=== PATIENT | male | born 1990 | race Hispanic/Latino ===

== ENCOUNTER 2019-12-03 18:46 | Emergency (ER) | payer OTHER ==
[2019-12-03 19:42] LABS: Basophils # (Auto) 0.1 K/mm3 (0.0-0.1); Basophils % (Auto) 1.2 % (0.0-1.8); Eosinophils # (Auto) 0.3 K/mm3 (0.0-0.4); Eosinophils % (Auto) 3.9 % (0.0-4.3); Lymphocytes # (Auto) 2.2 K/mm3 (1.2-5.4); Lymphocytes % (Auto) 28.9 % (13.4-35.0); Mean Corpuscular HGB Conc 34 % (32-34); Mean Corpuscular Volume 92 fl (84-94); Monocytes # (Auto) 0.9 K/mm3 (0.0-0.8); Monocytes % (Auto) 11.4 % (0.0-7.3); Platelet Count 199 K/mm3 (140-440); Red Cell Distribution Width 13.1 % (13.2-15.2)
[2019-12-03 20:03] LABS: BUN/Creatinine Ratio 8; Blood Urea Nitrogen 9 mg/dL (9-20); Calcium 9.5 mg/dL (8.4-10.2); Hemolysis Index 9
[2019-12-03] MEDS ORDERED: diphenhydrAMINE 50 MG/ML VIAL ONE (23:25)
[2019-12-03] MEDS ORDERED: LORazepam 2 MG/ML VIAL ONE (23:25)
[2019-12-03] MEDS ORDERED: ZIPRASIDONE MESYLATE 20 MG VIAL IM ONE ×2 (23:26→23:44)
--- NOTE | 2019-12-03 23:32 | Emergency Department Report ---
<SHARA AGGE III - Last Filed: 12/03/19 23:43> ED Psych HPI - General Chief Complaint: Psych Stated Complaint: SUICIDAL Time Seen by Provider: 12/03/19 23:09 Source: patient Mode of arrival: Ambulatory - History of Present Illness Initial Comments: Patient is a 28-year-old male that presents emergency room with complaints of suicidal ideations. Patient states he has a plan. Patient states he wants to jump in traffic or jump off a bridge. Patient states that his suicidal thoughts have been going on for 3 months but there becoming more frequent. Patient states his symptoms are worsening. Patient states that he therefore was able to control his urges to want to but now he cannot. Patient hallucinations. Patient denies homicidal ideations. Patient complains of depression anxiety. Patient states cannot sit still because he is so nervous. Patient states he has a history of polio, depression and ADHD and he is compliant with medications. Patient denies recent travel. Patient denies recent international travel. Patient denies exposure to the novel coronavirus. Patient denies sick contacts. Patient denies fever and chills. Patient denies cough. Patient denies diarrhea. Patient denies coming in contact with anybody with symptoms of the novel coronavirus. MD Complaint: suicidal ideation, feels depressed -: Sudden Associated Psychiatric Symptoms: depression, suicidal ideation, racing thoughts History of same: Yes Quality: constant Improves With: none Worsens With: none Context: significant life stressor Associated Symptoms: denies: confusion, headache, shortness of breath, nausea, vomiting, syncope, insomnia If Self Harm: admits thoughts of, has plan - Related Data Home Medications Medication Instructions Recorded Confirmed Last Taken [place] Carbonate [Eskalith] 300 mg PO BID 12/04/19 12/04/19 Unknown Mirtazapine [Remeron 15mg TAB] 15 mg PO QDAY 12/04/19 12/04/19 Unknown risperiDONE [RisperDAL] 2 mg PO BID 12/04/19 12/04/19 Unknown Allergies Allergy/AdvReac Type Severity Reaction Status Date / Time No Known Allergies Allergy Verified 11/01/19 23:34 ED Review of Systems Constitutional: denies: chills, fever Eyes: denies: eye pain, eye discharge, vision change ENT: denies: ear pain, throat pain Respiratory: denies: cough, shortness of breath, wheezing Cardiovascular: denies: chest pain, palpitations Endocrine: no symptoms reported Gastrointestinal: denies: abdominal pain, nausea, diarrhea Genitourinary: denies: urgency, dysuria Musculoskeletal: denies: back pain, joint swelling, arthralgia Skin: denies: rash, lesions Neurological: denies: headache, weakness, paresthesias Psychiatric: anxiety, depression, suicidal thoughts. denies: auditory [place] llucinations, visual hallucinations, homicidal thoughts Hematological/Lymphatic: denies: easy bleeding, easy bruising ED Past Medical Hx - Past Medical History Previous Medical History?: Yes Hx Psychiatric Treatment: Yes (depression, bipolar ADHD) - Surgical History Past Surgical History?: No - Social History Smoking Status: Current Every Day Smoker Substance Use Type: Alcohol - Medications Home Medications: Home Medications Medication Instructions Recorded Confirmed Last Taken Type [place] Carbonate [Eskalith] 300 mg PO BID 12/04/19 12/04/19 Unknown History Mirtazapine [Remeron 15mg TAB] 15 mg PO QDAY 12/04/19 12/04/19 Unknown History risperiDONE [RisperDAL] 2 mg PO BID 12/04/19 12/04/19 Unknown History ED Physical Exam - General Limitations: No Limitations General appearance: alert, in no apparent distress - Head Head exam: Present: atraumatic, normocephalic - Eye Eye exam: Present: normal appearance - ENT ENT exam: Present: mucous membranes moist - Neck Neck exam: Present: normal inspection - Respiratory Respiratory exam: Present: normal lung sounds bilaterally. Absent: respiratory distress - Cardiovascular Cardiovascular Exam: Present: regular rate, normal rhythm. Absent: systolic murmur, diastolic murmur, rubs, gallop - GI/Abdominal GI/Abdominal exam: Present: soft, normal bowel sounds - Rectal Rectal exam: Present: deferred - Extremities Exam Extremities exam: Present: normal inspection - Back Exam Back exam: Present: normal inspection - Neurological Exam Neurological exam: Present: alert, oriented X3 - Psychiatric Psychiatric exam: Present: agitated, anxious, suicidal ideation - Skin Skin exam: Present: warm, dry, intact, normal color. Absent: rash ED Course - Reevaluation(s) Reevaluation #1: Initial evaluation done. Patient placed on a ER hold. Patient is pacing around the room and is very anxious. Patient will be given Geodon and Ativan and Benadryl. Patient agrees with plan of care. Patient requested to be placed on a 1013. 12/03/19 23:15 Reevaluation #2: I discussed all results and clinical findings with patient. I discussed plan of care with patient. Patient agrees with plan of care. Patient is medically cleared. Patient will remain in the ER as an ER hold and patient's final disposition will come from our psychiatry team. He states he really needs him to calm down. Patient states he cannot stop his racing thoughts of suicide. Patient will be given medications. The nurse is preparing the meds. 12/03/19 23:32 ED Medical Decision Making - Lab Data Result diagrams: 12/03/19 19:16 12/03/19 19:16 - Medical Decision Making Patient is a 28-year-old male that presents emergency room with complaints of suicidal ideation with plan. Patient states he wants to jump off a bridge or jumping travel. Patient states he wants to . Patient agitated and anxious while being examined. Patient given Geodon, Ativan and Benadryl. Patient had labs done which shows acute intoxication. The rest of patient's labs are unremarkable. Patient medically cleared. Patient will remain in the ER as an ER hold. Patient's final disposition will come from our psychiatry team. - Differential Diagnosis Suicidal ideation, depression, anxiety, agitation. ED Disposition Clinical Impression: Suicidal ideation Disposition: [id number]/TX-[id number] PSY HOSP/PSY UNIT Is pt being admited?: No Does the pt Need Aspirin: No Condition: Stable <DIMITRI BABCOCK - Last Filed: 12/04/19 12:43> ED Review of Systems ROS: Stated complaint: SUICIDAL Other details as noted in HPI ED Course Vital Signs 12/03/19 12/04/19 12/04/19 18:53 01:00 01:51 Temperature 98.2 F 98 F Pulse Rate 127 H 88 Respiratory 16 18 18 Rate Blood Pressure 160/80 134/86 [Right] O2 Sat by Pulse 96 100 100 Oximetry 12/04/19 09:46 Temperature 98.4 F Pulse Rate 94 H Respiratory 20 Rate Blood Pressure 131/71 [Right] O2 Sat by Pulse 99 Oximetry ED Medical Decision Making - Lab Data Result diagrams: 12/03/19 19:16 12/03/19 19:16 - Medical Decision Making Patient was seen last night by 1 of my colleagues and expressed suicidal ideations with a plan to jump off a bridge. He was seen by the psychiatric train brake operator and the same suicidal ideations were expressed to her. Finally, the patient continues to express these same suicidal ideations to me. A 1013 has been filled out. Labs have been mostly unremarkable except for amphetamines positive on urine drug screen and the patient had a blood alcohol level of 0.16 at 7 PM last night that will certainly be negative at this time. Vital signs are reassuring. The patient is medically cleared for psychiatric placement. Critical Care Time: No Critical care attestation.: If time is entered above; I have spent that time in minutes in the direct care of this critically ill patient, excluding procedure time. ED Disposition Is pt being admited?: No Time of Disposition: 12:43
[2019-12-03] MEDS ORDERED: diphenhydrAMINE 50 MG/ML VIAL IM ONE (23:44)
[2019-12-03] MEDS ORDERED: LORazepam 2 MG/ML VIAL IM ONE (23:44)
[2019-12-04 00:32] LABS: Bilirubin,Urine NEG (Negative); Blood,Urine NEG (Negative); Color,Urine Straw (Yellow); Protein,Urine <15 mg/dL mg/dL (Negative); Urobilinogen,Urine < 2.0 mg/dL (<2.0)
[2019-12-04 00:40] LABS: Amphetamine Screen,Urine PRESUMPTIVE POSITIVE; Benzodiazepines Screen,Urine PRESUMPTIVE NEGATIVE; Cannabinoid Screen,Urine PRESUMPTIVE NEGATIVE; Cocaine Screen,Urine PRESUMPTIVE NEGATIVE; Methadone Screen,Urine PRESUMPTIVE NEGATIVE; Opiate Screen,Urine PRESUMPTIVE NEGATIVE
[2019-12-04 09:47] VITALS: BP 131/71
== END 2019-12-04 18:22 ==
LOC: ED 18:46 → EEVIPCON 18:46 → ED 12-04 18:22
DX: R45.851 Suicidal ideations (principal); F32.9 Major depressive disorder, single episode, unspecified; F17.200 Nicotine dependence, unspecified, uncomplicated; Z79.899 Other long term (current) drug therapy
CPT/HCPCS: 36415; 80048; 80307; 81001; 85025; 96372; 99285; J1200; J2060; J3486; 80320; G0480

== ENCOUNTER 2021-01-21 16:46 | Emergency (ER) | payer OTHER ==
--- NOTE | 2021-01-21 17:53 | Emergency Department Report ---
ED Psych HPI - General Chief Complaint: Psych Stated Complaint: HOMICIDAL THOUGHTS Time Seen by Provider: 01/21/21 17:36 Source: patient Mode of arrival: Ambulatory - History of Present Illness Initial Comments: Patient presents with homicidal ideation. He is requesting a psychiatric evaluation. He states that he feels like he wants to kill somebody. He does not have anyone in particular in mind. He has talked about and thought about stuffing a gasoline filled rag in their mouth and then proceeding from there. He has not acted on this. He is not suicidal. He is not hearing voices that are telling him to harm himself. Patient is on Abilify and Zyprexa. He states that that has not controlled his symptoms at all. He is willing to speak to a counselor. He is willing to try other medication. - Related Data Home Medications Medication Instructions Recorded Confirmed Last Taken [place] Carbonate [Eskalith] 300 mg PO BID 12/04/19 12/04/19 Unknown Mirtazapine [Remeron 15mg TAB] 15 mg PO QDAY 12/04/19 12/04/19 Unknown risperiDONE [RisperDAL] 2 mg PO BID 12/04/19 12/04/19 Unknown Allergies Allergy/AdvReac Type Severity Reaction Status Date / Time No Known Allergies Allergy Verified 01/21/21 17:03 ED Review of Systems ROS: Stated complaint: HOMICIDAL THOUGHTS Other details as noted in HPI Comment: All other systems reviewed and negative Constitutional: denies: fever Eyes: denies: eye pain ENT: denies: throat pain Respiratory: denies: cough Cardiovascular: denies: chest pain Endocrine: denies: unexplained weight loss Gastrointestinal: denies: abdominal pain Genitourinary: denies: dysuria Musculoskeletal: denies: back pain Skin: denies: rash Neurological: denies: headache Psychiatric: as per HPI Hematological/Lymphatic: denies: easy bruising ED Past Medical Hx - Past Medical History Hx Psychiatric Treatment: Yes (depression, bipolar ADHD) - Family History Family history: no significant - Social History Smoking Status: Current Every Day Smoker (We discussed smoking cessation x3 minutes.) Substance Use Type: Alcohol - Medications Home Medications: Home Medications Medication Instructions Recorded Confirmed Last Taken Type [place] Carbonate [Eskalith] 300 mg PO BID 12/04/19 12/04/19 Unknown History Mirtazapine [Remeron 15mg TAB] 15 mg PO QDAY 12/04/19 12/04/19 Unknown History risperiDONE [RisperDAL] 2 mg PO BID 12/04/19 12/04/19 Unknown History ED Physical Exam - General Limitations: No Limitations, Other General appearance: alert, in no apparent distress - Head Head exam: Present: atraumatic, normocephalic, normal inspection - Eye Eye exam: Present: normal appearance, EOMI. Absent: scleral icterus - ENT ENT exam: Present: normal exam, normal external ear exam - Neck Neck exam: Absent: tenderness, meningismus - Respiratory Respiratory exam: Present: normal lung sounds bilaterally. Absent: respiratory distress - Cardiovascular Cardiovascular Exam: Present: regular rate, normal rhythm - GI/Abdominal GI/Abdominal exam: Present: soft. Absent: distended - Extremities Exam Extremities exam: Present: normal capillary refill - Back Exam Back exam: Present: full ROM - Neurological Exam Neurological exam: Present: alert, oriented X3, normal gait. Absent: motor sensory deficit - Psychiatric Psychiatric exam: Present: homicidal ideation - Skin Skin exam: Present: warm, dry ED Course Vital Signs 01/21/21 01/21/21 17:02 17:32 Temperature 98.2 F 97.9 F Pulse Rate 105 H 93 H Respiratory 16 20 Rate Blood Pressure 126/72 138/76 [Left] O2 Sat by Pulse 100 96 Oximetry - Reevaluation(s) Reevaluation #1: 01/21/21 17:53 Patient was placed on a hold. Labs were ordered. Psychiatric evaluation has been requested. Old records reviewed. Reevaluation #2: 01/21/21 18:55 Labs are noted. Patient is medically cleared. Psychiatric evaluation is currently pending. Reevaluation #3: 01/21/21 19:13 Psychiatric evaluation has been completed. Patient meets criteria for admission. Coronavirus swab has been ordered. Patient will be observed and maintained here until psychiatric placement can be facilitated. ED Medical Decision Making - Lab Data Result diagrams: 01/21/21 17:45 01/21/21 17:45 - Medical Decision Making Patient presents with active homicidal ideation. He does not have any specific target in mind. He does not appear to be septic or toxic. There is no metabolic derangement. He does not have any evidence of intoxicants on board. He is clinically sober. Patient is medically cleared. We will await psychiatric disposition. Critical Care Time: No Critical care attestation.: If time is entered above; I have spent that time in minutes in the direct care of this critically ill patient, excluding procedure time. ED Disposition Clinical Impression: Homicidal ideation Disposition: 30 STILL A PATIENT Is pt being admited?: No Condition: Stable Referrals: PRIMARY CARE, [Primary Care Provider] - 3-5 Days
[2021-01-21 18:25] LABS: Amphetamine Screen,Urine Negative; Benzodiazepines Screen,Urine Negative; Cannabinoid Screen,Urine Negative; Cocaine Screen,Urine Negative; Methadone Screen,Urine Negative; Opiate Screen,Urine Negative
[2021-01-21 18:29] LABS: BUN/Creatinine Ratio 10; Blood Urea Nitrogen 12 mg/dL (9-20); Calcium 9.6 mg/dL (8.4-10.2); Hemolysis Index 12
[2021-01-21 18:51] LABS: Basophils # (Auto) 0.1 K/mm3 (0.0-0.1); Eosinophils # (Auto) 0.2 K/mm3 (0.0-0.4); Eosinophils % (Auto) 2.2 % (0.0-4.3); Hematocrit 44.9 % (35.5-45.6); Hemoglobin 15.5 gm/dl (11.8-15.2); Lymphocytes # (Auto) 2.7 K/mm3 (1.2-5.4); Lymphocytes % (Auto) 32.1 % (13.4-35.0); Mean Corpuscular HGB Conc 35 % (32-34); Mean Corpuscular Volume 93 fl (84-94); Monocytes # (Auto) 0.8 K/mm3 (0.0-0.8); Monocytes % (Auto) 9.6 % (0.0-7.3); Platelet Count 188 K/mm3 (140-440); Red Blood Count 4.85 M/mm3 (3.65-5.03); Red Cell Distribution Width 13.6 % (13.2-15.2)
[2021-01-21] MEDS ORDERED: POTASSIUM CHLORIDE ER 20 MEQ TAB PO ONE (19:14)
[2021-01-22 08:12] VITALS: BP 120/45
--- NOTE | 2021-01-22 10:51 | Consultation ---
History of Present Illness - Reason for Consult Consult date: 01/22/21 Reason for consult: Homicidal ideation - History of Present Psychiatric Illness Per Note: Patient presents with homicidal ideation. He is requesting a psychiatric evaluation. He states that he feels like he wants to kill somebody. He does not have anyone in particular in mind. He has talked about and thought about stuffing a gasoline filled rag in their mouth and then proceeding from there. He has not acted on this. He is not suicidal. He is not hearing voices that are telling him to harm himself. Patient is on Abilify and Zyprexa. He states that that has not controlled his symptoms at all. He is willing to speak to a counselor. He is willing to try other medication. Nehemiah Castañeda is a 30 year old male with history of Bipolar. In my interview with the patient is calm and cooperative. The patient reports that he was recently discharged from an Inpatient facility where he was admitted for homicidal ideation. The patient continues to endorse homicidal ideation without a plan stating " Just flashes of anger"; states ongoing homicidal ideation for months now and has been compliant with psychotropic medications. He reports recent stressor such a school. The patient denies any current suicidal ideation and denies hallucinations. PAST PSYCHIATRIC HISTORY Diagnoses: Bipolar Suicide attempts or Self-harm behavior: Yes Prior psychiatric hospitalizations: Multiple Substance Abuse history: Amphetamines Previous psychiatric medications tried: currently on Abilify and Zyprexa. Outpatient treatment: Denied SOCIAL HISTORY Marital Status: Single Living Arrangements: Lives with grand mother Employment Status: unemployed Access to guns/weapons: Denied Education: some college History of Abuse: Denied Legal History: None reported REVIEW OF SYSTEMS Constitutional: Negative for weight loss ENT: Negative for stridor Respiratory: Negative for cough or hemoptysis All other systems reviewed and are negative MENTAL STATUS EXAMINATION General Appearance and Behavior: Age appropriate, dressed appropriately, calm and uncooperative Cooperation: guarded Psychomotor Behavior: psychomotor normal Mood: "ok" Affect and affective range: restricted Thought Process: goal oriented Thought Content: None Speech: Normal volume, Regular rate and rhythm, Intellectual Functioning: Average Suicidal Ideation:Not suicidal Homicidal Ideation: denies Hallucinations: Denies Delusions: None elicited Impulse Control: Unimpaired Insight and Judgment: limited insight and judgment, Memory: Normal Attention: divided Orientation: Alert, oriented Assessment and Plan (1) Bipolar (2) Treatment plan Continue 1013 Continue previous prescribed meds Risks, benefits and alternatives of medications discussed with the patient, questions answered and consent obtained from patient. PSYCHOTHERAPY: Supportive psychotherapy provided MEDICAL: Per primary team DELIRIUM PRECAUTIONS: Please re-orient patient frequently, keep lights on during the day, and minimize benzodiazepines and opiates as these medications could worsen patient's confusion. QUALITY CONTROL LEAD: Per medical team DISPOSITION: Recommend acute inpatient psychiatric hospitalization. Will follow. Thank you for the consult. Please contact with any questions and/or concerns. Case staffed with Dr. Rashid Medications and Allergies Allergies Allergy/AdvReac Type Severity Reaction Status Date / Time No Known Allergies Allergy Verified 01/21/21 17:03 Home Medications Medication Instructions Recorded Confirmed Last Taken Type ARIPiprazole [Abilify] 20 mg PO QDAY 01/22/21 01/22/21 Unknown History OLANzapine [ZyPREXA] 2.5 mg PO QDAY 01/22/21 01/22/21 Unknown History Mental Status Exam - Vital signs Last Vital Signs Temp 98.3 F 01/22/21 08:11 Pulse 89 01/22/21 08:11 Resp 18 01/22/21 08:11 BP 120/45 01/22/21 08:11 Pulse Ox 97 01/22/21 08:11 Results Result Diagrams: 01/21/21 17:45 01/21/21 17:45 Abnormal lab results 01/21/21 01/21/21 01/21/21 Range/Units 17:45 17:45 17:45 Hgb 15.5 H (11.8-15.2) gm/dl MCHC 35 H (32-34) % [place] % (Auto) 9.6 H (0.0-7.3) % Potassium 3.5 L (3.6-5.0) mmol/L Carbon Dioxide 19 L (22-30) mmol/L Plasma/Serum Alcohol 0.11 H (0-0.07) % All other labs normal.
[2021-01-22] MEDS ORDERED: LORazepam 2 MG/ML VIAL IM PRN (11:09)
[2021-01-22] MEDS ORDERED: diphenhydrAMINE 25 MG CAP PO PRN (11:09)
--- NOTE | 2021-01-22 11:11 | Event Note ---
Date: 01/22/21 The patient was evaluated in the emergency department for symptoms described in the history of present illness. He/she was evaluated in the context of the global COVID-19 pandemic, which necessitated consideration that the patient might be at risk for infection with the virus that causes COVID-19. Institutional protocols and algorithms that pertain to the evaluation of patients at risk for COVID-19 are in a state of rapid change based on information released by regulatory bodies including the CDC and federal and state organizations. These policies and algorithms were followed during the patient's care in the emergency department. Please note that these policies, procedures and recommendations changed on a rapid basis. Patient seen and examined. He is cooperative with myself. He is in no acute distress. He denies acute medical complaints. At the psychiatry team who recommended 1013. His initial laboratory studies are reviewed and appreciated. Salicylate and acetaminophen level as well as lithium level have not been obtained. In addition, CO2 was 19 on his initial ER evaluation. We will recheck these laboratory studies. As needed orders initiated. Psychiatric recommendations reviewed and appreciated. Nursing team endorses no acute complaints at this time. Patient endorsed no urinary symptoms to myself or to care team. 01/22/2021; 14: 11 PM Laboratory studies unremarkable. This patient remains medically suitable for psychiatric consultation, placement and disposition. Psychiatric recommendations are reviewed and appreciated. Awaiting placement. Vital Signs 01/21/21 01/21/21 01/21/21 17:02 17:32 20:46 Temperature 98.2 F 97.9 F Pulse Rate 105 H 93 H Respiratory 16 20 Rate Blood Pressure 126/72 138/76 [Left] O2 Sat by Pulse 100 96 98 Oximetry 01/22/21 08:11 Temperature 98.3 F Pulse Rate 89 Respiratory 18 Rate Blood Pressure 120/45 [Left] O2 Sat by Pulse 97 Oximetry Lab Results 01/21/21 01/21/21 01/21/21 Range/Units 17:45 17:45 17:45 WBC 8.4 (4.5-11.0) K/mm3 RBC 4.85 (3.65-5.03) M/mm3 Hgb 15.5 H (11.8-15.2) gm/dl Hct 44.9 (35.5-45.6) % MCV 93 (84-94) fl MCH 32 (28-32) pg MCHC 35 H (32-34) % RDW 13.6 (13.2-15.2) % Plt Count 188 (140-440) K/mm3 Lymph % (Auto) 32.1 (13.4-35.0) % [place] % (Auto) 9.6 H (0.0-7.3) % Eos % (Auto) 2.2 (0.0-4.3) % Baso % (Auto) 1.0 (0.0-1.8) % Lymph # (Auto) 2.7 (1.2-5.4) K/mm3 [place] # (Auto) 0.8 (0.0-0.8) K/mm3 Eos # (Auto) 0.2 (0.0-0.4) K/mm3 Baso # (Auto) 0.1 (0.0-0.1) K/mm3 Seg Neutrophils % 55.1 (40.0-70.0) % Seg Neutrophils # 4.6 (1.8-7.7) K/mm3 Sodium 142 (137-145) mmol/L Potassium 3.5 L (3.6-5.0) mmol/L Chloride 104.8 (98-107) mmol/L Carbon Dioxide 19 L (22-30) mmol/L Anion Gap 22 mmol/L BUN 12 (9-20) mg/dL Creatinine 1.2 (0.8-1.3) mg/dL Estimated GFR > 60 ml/min BUN/Creatinine Ratio 10 % Glucose 91 (75-100) mg/dL Calcium 9.6 (8.4-10.2) mg/dL Urine Opiates Screen Urine Methadone Screen Ur Barbiturates Screen Ur Phencyclidine Scrn Ur Amphetamines Screen U Benzodiazepines Scrn Urine Cocaine Screen U Marijuana (THC) Screen Drugs of Abuse Note Plasma/Serum Alcohol 0.11 H (0-0.07) % 01/21/21 Range/Units 17:48 WBC (4.5-11.0) K/mm3 RBC (3.65-5.03) M/mm3 Hgb (11.8-15.2) gm/dl Hct (35.5-45.6) % MCV (84-94) fl MCH (28-32) pg MCHC (32-34) % RDW (13.2-15.2) % Plt Count (140-440) K/mm3 Lymph % (Auto) (13.4-35.0) % [place] % (Auto) (0.0-7.3) % Eos % (Auto) (0.0-4.3) % Baso % (Auto) (0.0-1.8) % Lymph # (Auto) (1.2-5.4) K/mm3 [place] # (Auto) (0.0-0.8) K/mm3 Eos # (Auto) (0.0-0.4) K/mm3 Baso # (Auto) (0.0-0.1) K/mm3 Seg Neutrophils % (40.0-70.0) % Seg Neutrophils # (1.8-7.7) K/mm3 Sodium (137-145) mmol/L Potassium (3.6-5.0) mmol/L Chloride (98-107) mmol/L Carbon Dioxide (22-30) mmol/L Anion Gap mmol/L BUN (9-20) mg/dL Creatinine (0.8-1.3) mg/dL Estimated GFR ml/min BUN/Creatinine Ratio % Glucose (75-100) mg/dL Calcium (8.4-10.2) mg/dL Urine Opiates Screen Negative Urine Methadone Screen Negative Ur Barbiturates Screen Negative Ur Phencyclidine Scrn Negative Ur Amphetamines Screen Negative U Benzodiazepines Scrn Negative Urine Cocaine Screen Negative U Marijuana (THC) Screen Negative Drugs of Abuse Note Disclamer Plasma/Serum Alcohol (0-0.07) % Lab Results 01/21/21 01/21/21 01/21/21 Range/Units 17:45 17:45 17:45 WBC 8.4 (4.5-11.0) K/mm3 RBC 4.85 (3.65-5.03) M/mm3 Hgb 15.5 H (11.8-15.2) gm/dl Hct 44.9 (35.5-45.6) % MCV 93 (84-94) fl MCH 32 (28-32) pg MCHC 35 H (32-34) % RDW 13.6 (13.2-15.2) % Plt Count 188 (140-440) K/mm3 Lymph % (Auto) 32.1 (13.4-35.0) % [place] % (Auto) 9.6 H (0.0-7.3) % Eos % (Auto) 2.2 (0.0-4.3) % Baso % (Auto) 1.0 (0.0-1.8) % Lymph # (Auto) 2.7 (1.2-5.4) K/mm3 [place] # (Auto) 0.8 (0.0-0.8) K/mm3 Eos # (Auto) 0.2 (0.0-0.4) K/mm3 Baso # (Auto) 0.1 (0.0-0.1) K/mm3 Seg Neutrophils % 55.1 (40.0-70.0) % Seg Neutrophils # 4.6 (1.8-7.7) K/mm3 Sodium 142 (137-145) mmol/L Potassium 3.5 L (3.6-5.0) mmol/L Chloride 104.8 (98-107) mmol/L Carbon Dioxide 19 L (22-30) mmol/L Anion Gap 22 mmol/L BUN 12 (9-20) mg/dL Creatinine 1.2 (0.8-1.3) mg/dL Estimated GFR > 60 ml/min BUN/Creatinine Ratio 10 % Glucose 91 (75-100) mg/dL Calcium 9.6 (8.4-10.2) mg/dL Total Creatine Kinase (55-170) units/L Urine Color (Yellow) Urine Turbidity (Clear) Urine pH (5.0-7.0) Ur Specific [place] (1.003-1.030) Urine Protein (Negative) mg/dL Urine Glucose (UA) (Negative) mg/dL Urine Ketones (Negative) mg/dL Urine Blood (Negative) Urine Nitrite (Negative) Urine Bilirubin (Negative) Urine Urobilinogen (<2.0) mg/dL Ur Leukocyte Esterase (Negative) Urine WBC (Auto) (0.0-6.0) /HPF Urine RBC (Auto) (0.0-6.0) /HPF Urine Mucus /HPF Salicylates (2.8-20.0) mg/dL Urine Opiates Screen Urine Methadone Screen Acetaminophen (10.0-30.0) ug/mL Ur Barbiturates Screen Ur Phencyclidine Scrn Ur Amphetamines Screen U Benzodiazepines Scrn [place] (0.0-1.2) mmol/L Urine Cocaine Screen U Marijuana (THC) Screen Drugs of Abuse Note Plasma/Serum Alcohol 0.11 H (0-0.07) % 01/21/21 01/22/21 01/22/21 Range/Units 17:48 11:23 11:23 WBC (4.5-11.0) K/mm3 RBC (3.65-5.03) M/mm3 Hgb (11.8-15.2) gm/dl Hct (35.5-45.6) % MCV (84-94) fl MCH (28-32) pg MCHC (32-34) % RDW (13.2-15.2) % Plt Count (140-440) K/mm3 Lymph % (Auto) (13.4-35.0) % [place] % (Auto) (0.0-7.3) % Eos % (Auto) (0.0-4.3) % Baso % (Auto) (0.0-1.8) % Lymph # (Auto) (1.2-5.4) K/mm3 [place] # (Auto) (0.0-0.8) K/mm3 Eos # (Auto) (0.0-0.4) K/mm3 Baso # (Auto) (0.0-0.1) K/mm3 Seg Neutrophils % (40.0-70.0) % Seg Neutrophils # (1.8-7.7) K/mm3 Sodium 137 (137-145) mmol/L Potassium 4.8 D (3.6-5.0) mmol/L Chloride 101.4 (98-107) mmol/L Carbon Dioxide 27 D (22-30) mmol/L Anion Gap 13 mmol/L BUN 18 (9-20) mg/dL Creatinine 1.2 (0.8-1.3) mg/dL Estimated GFR > 60 ml/min BUN/Creatinine Ratio 15 % Glucose 103 H (75-100) mg/dL Calcium 9.9 (8.4-10.2) mg/dL Total Creatine Kinase 362 H (55-170) units/L Urine Color (Yellow) Urine Turbidity (Clear) Urine pH (5.0-7.0) Ur Specific [place] (1.003-1.030) Urine Protein (Negative) mg/dL Urine Glucose (UA) (Negative) mg/dL Urine Ketones (Negative) mg/dL Urine Blood (Negative) Urine Nitrite (Negative) Urine Bilirubin (Negative) Urine Urobilinogen (<2.0) mg/dL Ur Leukocyte Esterase (Negative) Urine WBC (Auto) (0.0-6.0) /HPF Urine RBC (Auto) (0.0-6.0) /HPF Urine Mucus /HPF Salicylates < 0.3 L (2.8-20.0) mg/dL Urine Opiates Screen Negative Urine Methadone Screen Negative Acetaminophen (10.0-30.0) ug/mL Ur Barbiturates Screen Negative Ur Phencyclidine Scrn Negative Ur Amphetamines Screen Negative U Benzodiazepines Scrn Negative [place] 0.1 (0.0-1.2) mmol/L Urine Cocaine Screen Negative U Marijuana (THC) Screen Negative Drugs of Abuse Note Disclamer Plasma/Serum Alcohol (0-0.07) % 01/22/21 01/22/21 01/22/21 Range/Units 11:23 12:22 Unknown WBC (4.5-11.0) K/mm3 RBC (3.65-5.03) M/mm3 Hgb (11.8-15.2) gm/dl Hct (35.5-45.6) % MCV (84-94) fl MCH (28-32) pg MCHC (32-34) % RDW (13.2-15.2) % Plt Count (140-440) K/mm3 Lymph % (Auto) (13.4-35.0) % [place] % (Auto) (0.0-7.3) % Eos % (Auto) (0.0-4.3) % Baso % (Auto) (0.0-1.8) % Lymph # (Auto) (1.2-5.4) K/mm3 [place] # (Auto) (0.0-0.8) K/mm3 Eos # (Auto) (0.0-0.4) K/mm3 Baso # (Auto) (0.0-0.1) K/mm3 Seg Neutrophils % (40.0-70.0) % Seg Neutrophils # (1.8-7.7) K/mm3 Sodium (137-145) mmol/L Potassium (3.6-5.0) mmol/L Chloride (98-107) mmol/L Carbon Dioxide (22-30) mmol/L Anion Gap mmol/L BUN (9-20) mg/dL Creatinine (0.8-1.3) mg/dL Estimated GFR ml/min BUN/Creatinine Ratio % Glucose (75-100) mg/dL Calcium (8.4-10.2) mg/dL Total Creatine Kinase (55-170) units/L Urine Color Yellow (Yellow) Urine Turbidity Clear (Clear) Urine pH 7.0 (5.0-7.0) Ur Specific [place] 1.014 (1.003-1.030) Urine Protein <15 mg/dl (Negative) mg/dL Urine Glucose (UA) Neg (Negative) mg/dL Urine Ketones Neg (Negative) mg/dL Urine Blood Neg (Negative) Urine Nitrite Neg (Negative) Urine Bilirubin Neg (Negative) Urine Urobilinogen < 2.0 (<2.0) mg/dL Ur Leukocyte Esterase Neg (Negative) Urine WBC (Auto) 1.0 (0.0-6.0) /HPF Urine RBC (Auto) 1.0 (0.0-6.0) /HPF Urine Mucus Few /HPF Salicylates (2.8-20.0) mg/dL Urine Opiates Screen Negative Urine Methadone Screen Negative Acetaminophen 5.0 L (10.0-30.0) ug/mL Ur Barbiturates Screen Negative Ur Phencyclidine Scrn Negative Ur Amphetamines Screen Negative U Benzodiazepines Scrn Negative [place] (0.0-1.2) mmol/L Urine Cocaine Screen Negative U Marijuana (THC) Screen Negative Drugs of Abuse Note Disclamer Plasma/Serum Alcohol (0-0.07) %
[2021-01-22 11:59] LABS: BUN/Creatinine Ratio 15; Blood Urea Nitrogen 18 mg/dL (9-20); Calcium 9.9 mg/dL (8.4-10.2); Hemolysis Index 12
[2021-01-22] MEDS ORDERED: LITHIUM CARBONATE 300 MG CAP PO SCH (12:00)
[2021-01-22] MEDS ORDERED: ARIPiprazole 10 MG TAB PO SCH (12:00)
[2021-01-22 12:58] LABS: Bilirubin,Urine NEG (Negative); Blood,Urine NEG (Negative); Color,Urine Yellow (Yellow); Mucus,Urine FEW /HPF; Protein,Urine <15 mg/dL mg/dL (Negative); Urobilinogen,Urine < 2.0 mg/dL (<2.0)
[2021-01-22 13:07] LABS: Amphetamine Screen,Urine Negative; Benzodiazepines Screen,Urine Negative; Cannabinoid Screen,Urine Negative; Cocaine Screen,Urine Negative; Methadone Screen,Urine Negative; Opiate Screen,Urine Negative
[2021-01-22] MEDS ORDERED: MIRTAZAPINE 15 MG TAB PO SCH (22:00)
== END 2021-01-22 14:58 | disposition still patient (30) ==
LOC: ED 16:46
DX: R45.850 Homicidal ideations (principal); F17.200 Nicotine dependence, unspecified, uncomplicated; F10.20 Alcohol dependence, uncomplicated; F31.9 Bipolar disorder, unspecified; Z20.822 Contact with and (suspected) exposure to COVID-19
CPT/HCPCS: 36415; 80048; 80178; 80307; 81001; 82550; 85025; 99284; U0003; 80320; 99285; G0480

== ENCOUNTER 2021-03-14 21:47 | Emergency (ER) | payer OTHER ==
--- NOTE | 2021-03-14 22:28 | Emergency Department Report ---
ED Psych HPI - General Chief Complaint: Psych Stated Complaint: PSYCH Time Seen by Provider: 03/14/21 22:16 Source: patient, family Mode of arrival: Ambulatory - History of Present Illness Initial Comments: Patient is 30 years old male with history of bipolar disorder. Patient p resented to the ER for mental health evaluation. Patient stated that he has been feeling depressed for the last few days. Patient stated that he has a plan to kill himself by suffocation with gas. Patient denied any auditory hallucination or visual hallucination. No homicidal ideation. MD Complaint: suicidal ideation -: days(s) Associated Psychiatric Symptoms: depression, suicidal ideation Associated Symptoms: denies other symptoms If Self Harm: admits thoughts of, has plan - Related Data Home Medications Medication Instructions Recorded Confirmed Last Taken ARIPiprazole [Abilify] 20 mg PO QDAY 01/22/21 01/22/21 Unknown OLANzapine [ZyPREXA] 2.5 mg PO QDAY 01/22/21 01/22/21 Unknown Allergies Allergy/AdvReac Type Severity Reaction Status Date / Time No Known Allergies Allergy Verified 01/21/21 17:03 ED Review of Systems ROS: Stated complaint: PSYCH Other details as noted in HPI Comment: All other systems reviewed and negative Constitutional: denies: chills, fever Respiratory: denies: cough, shortness of breath, SOB with exertion, SOB at rest Cardiovascular: denies: chest pain, palpitations Gastrointestinal: denies: abdominal pain, nausea, vomiting, diarrhea, constipation, hematemesis, melena, hematochezia Musculoskeletal: denies: back pain Neurological: denies: headache, weakness, numbness, paresthesias, confusion, abnormal gait Psychiatric: depression, suicidal thoughts. denies: auditory hallucinations, visual hallucinations, homicidal thoughts ED Past Medical Hx - Past Medical History Previous Medical History?: Yes Hx Psychiatric Treatment: Yes (depression, bipolar ADHD) - Surgical History Past Surgical History?: No - Social History Smoking Status: Current Every Day Smoker (We discussed smoking cessation x3 minutes.) Substance Use Type: Alcohol - Medications Home Medications: Home Medications Medication Instructions Recorded Confirmed Last Taken Type ARIPiprazole [Abilify] 20 mg PO QDAY 01/22/21 01/22/21 Unknown History OLANzapine [ZyPREXA] 2.5 mg PO QDAY 01/22/21 01/22/21 Unknown History ED Physical Exam - General Limitations: No Limitations General appearance: alert, in no apparent distress - Head Head exam: Present: atraumatic, normocephalic, normal inspection - Eye Eye exam: Present: normal appearance, PERRL - ENT ENT exam: Present: normal exam, normal orophraynx, mucous membranes moist - Neck Neck exam: Present: normal inspection, full ROM. Absent: tenderness, meningismus - Respiratory Respiratory exam: Present: normal lung sounds bilaterally - Cardiovascular Cardiovascular Exam: Present: regular rate, normal rhythm, normal heart sounds - GI/Abdominal GI/Abdominal exam: Present: soft, normal bowel sounds. Absent: distended, tenderness, guarding, rebound, rigid, organomegaly, mass, bruit, pulsatile mass, hernia - Extremities Exam Extremities exam: Present: normal inspection, full ROM, normal capillary refill. Absent: tenderness, pedal edema, joint swelling, calf tenderness - Back Exam Back exam: Present: normal inspection, full ROM. Absent: CVA tenderness (R), CVA tenderness (L) - Neurological Exam Neurological exam: Present: alert, oriented X3, CN II-XII intact, normal gait, reflexes normal. Absent: motor sensory deficit - Psychiatric Psychiatric exam: Present: depressed, suicidal ideation. Absent: agitated, ma jaylene, homicidal ideation - Skin Skin exam: Present: warm, intact, normal color ED Course Vital Signs 03/14/21 03/14/21 03/14/21 21:48 22:32 22:33 Temperature 98.4 F 98.8 F Pulse Rate 80 80 Respiratory 18 18 Rate Blood Pressure 143/74 138/74 [Right] O2 Sat by Pulse 99 98 98 Oximetry 03/15/21 03/15/21 03/16/21 09:12 22:25 04:34 Temperature 98.9 F 98.4 F Pulse Rate 88 75 Respiratory 18 18 18 Rate Blood Pressure 146/89 105/68 [Right] O2 Sat by Pulse 97 98 98 Oximetry 03/16/21 08:25 Temperature 97.6 F Pulse Rate 90 Respiratory 18 Rate Blood Pressure 121/47 [Right] O2 Sat by Pulse 97 Oximetry ED Medical Decision Making - Lab Data Result diagrams: 03/14/21 23:35 03/14/21 23:35 - Medical Decision Making Patient is 30 years old male with history of bipolar disorder. Patient presented to the ER for mental health evaluation. Patient stated that he has been feeling depressed for the last few days. Patient stated that he has a plan to kill himself by suffocation with gas. Patient denied any auditory hallucination or visual hallucination. No homicidal ideation. Labs reviewed and is unremarkable except for positive methamphetamine. Patient is medically cleared to be evaluated by our psychiatric team. Critical care attestation.: If time is entered above; I have spent that time in minutes in the direct care of this critically ill patient, excluding procedure time. ED Disposition Clinical Impression: Suicidal ideation, Methamphetamine abuse Disposition: [address] [place] [address] Is pt being admited?: No Condition: Stable Referrals: PRIMARY CARE, [Primary Care Provider] - 3-5 Days
[2021-03-14 22:44] LABS: Bilirubin,Urine NEG (Negative); Blood,Urine NEG (Negative); Color,Urine Straw (Yellow); Protein,Urine <15 mg/dL mg/dL (Negative); RBC,Urine < 1.0 /HPF (0.0-6.0); Urobilinogen,Urine < 2.0 mg/dL (<2.0); WBC,Urine < 1.0 /HPF (0.0-6.0)
[2021-03-14 22:51] LABS: Benzodiazepines Screen,Urine Negative; Cannabinoid Screen,Urine Negative; Cocaine Screen,Urine Negative; Methadone Screen,Urine Negative; Opiate Screen,Urine Negative
[2021-03-14 23:42] LABS: Amphetamine Screen,Urine Positive
[2021-03-14 23:57] LABS: Basophils % (Auto) 0.4 % (0.0-1.8); Eosinophils % (Auto) 0.1 % (0.0-4.3); Hematocrit 45.9 % (35.5-45.6); Hemoglobin 15.1 gm/dl (11.8-15.2); Lymphocytes # (Auto) 1.1 K/mm3 (1.2-5.4); Lymphocytes % (Auto) 10.6 % (13.4-35.0); Mean Corpuscular HGB Conc 33 % (32-34); Mean Corpuscular Volume 93 fl (84-94); Monocytes # (Auto) 0.6 K/mm3 (0.0-0.8); Monocytes % (Auto) 5.5 % (0.0-7.3); Platelet Count 217 K/mm3 (140-440); Red Blood Count 4.96 M/mm3 (3.65-5.03); Red Cell Distribution Width 14.2 % (13.2-15.2)
[2021-03-15 00:14] LABS: BUN/Creatinine Ratio 11; Blood Urea Nitrogen 12 mg/dL (9-20); Calcium 10.2 mg/dL (8.4-10.2); Hemolysis Index 5
--- NOTE | 2021-03-15 07:46 | Consultation ---
History of Present Illness - Reason for Consult Consult date: 03/15/21 Reason for consult: SI - History of Present Psychiatric Illness The patient was seen today. He endorses suicidal thoughts without a plan. He says he's been depressed "real bad for about two weeks." He says he is addicted to "adderall and alcohol." The patient says he has no family support due to the substance abuse. PAST PSYCHIATRIC HISTORY Diagnoses: Bipolar Suicide attempts or Self-harm behavior: Yes Prior psychiatric hospitalizations: Multiple Substance Abuse history: Amphetamines Previous psychiatric medications tried: currently on Abilify and Zyprexa. Outpatient treatment: Denied SOCIAL HISTORY Marital Status: Single Living Arrangements: Lives with grand mother Employment Status: unemployed Access to guns/weapons: Denied Education: some college History of Abuse: Denied Legal History: None reported REVIEW OF SYSTEMS Constitutional: Negative for weight loss ENT: Negative for stridor Respiratory: Negative for cough or hemoptysis All other systems reviewed and are negative MENTAL STATUS EXAMINATION General Appearance and Behavior: Age appropriate, dressed appropriately, calm and uncooperative Cooperation: guarded Psychomotor Behavior: psychomotor normal Mood: "ok" Affect and affective range: restricted Thought Process: goal oriented Thought Content: None Speech: Normal volume, Regular rate and rhythm, Intellectual Functioning: Average Suicidal Ideation:Not suicidal Homicidal Ideation: denies Hallucinations: Denies Delusions: None elicited Impulse Control: Unimpaired Insight and Judgment: limited insight and judgment, Memory: Normal Attention: divided Orientation: Alert, oriented Assessment and Plan (1) Bipolar (2) Ampetamine Use Disorder Treatment plan Continue 1013 Abilify 20mg po daily Zoloft 25mg po daily Risks, benefits and alternatives of medications discussed with the patient, questions answered and consent obtained from patient. PSYCHOTHERAPY: Supportive psychotherapy provided MEDICAL: Per primary team DELIRIUM PRECAUTIONS: Please re-orient patient frequently, keep lights on during the day, and minimize benzodiazepines and opiates as these medications could worsen patient's confusion. ECHO TECH: Per medical team DISPOSITION: Recommend acute inpatient psychiatric hospitalization. Will follow. Thank you for the consult. Please contact with any questions and/or concerns. Case staffed with Dr. Rashid Medications and Allergies Allergies Allergy/AdvReac Type Severity Reaction Status Date / Time No Known Allergies Allergy Verified 01/21/21 17:03 Home Medications Medication Instructions Recorded Confirmed Last Taken Type ARIPiprazole [Abilify] 20 mg PO QDAY 01/22/21 01/22/21 Unknown History OLANzapine [ZyPREXA] 2.5 mg PO QDAY 01/22/21 01/22/21 Unknown History Mental Status Exam - Vital signs Last Vital Signs Temp 98.8 F 03/14/21 22:33 Pulse 80 03/14/21 22:33 Resp 18 03/14/21 22:33 BP 138/74 03/14/21 22:33 Pulse Ox 98 03/14/21 22:33 Results Result Diagrams: 03/14/21 23:35 03/14/21 23:35 Abnormal lab results 03/14/21 03/14/21 03/14/21 Range/Units 23:35 23:35 23:35 Hct 45.9 H (35.5-45.6) % Lymph % (Auto) 10.6 L (13.4-35.0) % Lymph # (Auto) 1.1 L (1.2-5.4) K/mm3 Seg Neutrophils % 83.4 H (40.0-70.0) % Seg Neutrophils # 8.4 H (1.8-7.7) K/mm3 Glucose 111 H (75-100) mg/dL Salicylates < 0.3 L (2.8-20.0) mg/dL Acetaminophen (10.0-30.0) ug/mL 03/14/21 Range/Units 23:35 Hct (35.5-45.6) % Lymph % (Auto) (13.4-35.0) % Lymph # (Auto) (1.2-5.4) K/mm3 Seg Neutrophils % (40.0-70.0) % Seg Neutrophils # (1.8-7.7) K/mm3 Glucose (75-100) mg/dL Salicylates (2.8-20.0) mg/dL Acetaminophen 5.0 L (10.0-30.0) ug/mL All other labs normal.
[2021-03-15] MEDS: ARIPiprazole 10 MG TAB PO SCH (09:57)
[2021-03-15] MEDS: SERTRALINE 25 MG TAB PO SCH (09:58)
[2021-03-15] MEDS ORDERED: NON-FORMULARY EACH (Aripiprazole [Abilify] 20 MG Tablet) PO SCH (10:00)
[2021-03-16 08:26] VITALS: BP 121/47
[2021-03-16] MEDS: SERTRALINE 25 MG TAB PO SCH (09:48)
[2021-03-16] MEDS: ARIPiprazole 10 MG TAB PO SCH (09:48)
== END 2021-03-16 10:34 ==
LOC: ED 21:47
DX: R45.851 Suicidal ideations (principal); F19.10 Other psychoactive substance abuse, uncomplicated; Z20.822 Contact with and (suspected) exposure to COVID-19; F17.200 Nicotine dependence, unspecified, uncomplicated; F10.20 Alcohol dependence, uncomplicated; F31.9 Bipolar disorder, unspecified
CPT/HCPCS: 36415; 80048; 80307; 81001; 85025; 99285; U0003; 80320; G0480